=== PATIENT | male | born 1945 | race Caucasian/White ===

== ENCOUNTER 2020-05-22 02:48 | Outpatient (CLI) | payer MEDICARE, BC, SELFPAY ==
[2020-05-24 02:33] LABS: COVID-19 RT-PCR Result NEGATIVE (Negative)
== END 2020-05-22 03:08 ==
PROVIDERS: PCP Family Medicine; Visit Provider Family Medicine
DX: Z11.59 Encounter for screening for other viral diseases (principal); Z01.818 Encounter for other preprocedural examination
CPT/HCPCS: U0003

== ENCOUNTER 2020-05-25 05:01 | Outpatient (CLI) | payer MEDICARE, BC, SELFPAY ==
[2020-05-25] MEDS: Albuterol HFA 18 GM 200 PUFF INH IH (14:37)
[2020-05-25] MEDS: Inhaler, Assist Device 1 EACH MC (14:37)
--- NOTE | 2020-05-25 15:06 | W.PFT ---
Date of service: 05/25/20 Time of Service: 01:10 Pulmonary Function Test Result Interpretation Spirometry: Shows no evidence of obstructive airways disease, no bronchodilator response Lung Volumes: No evidence of restriction Diffusion Capacity: Mildly reduced even when corrected to alveolar volume Airway Pressure: Normal Impression Isolated mild diffusion defect, this can be seen in early, developing interstitial lung disease as well as in pulmonary hypertension. Therefore if either of those entities are considered clinically, further work-up may be necessary. Clinical Correlation therefore is recommended.
== END 2020-05-25 05:21 ==
PROVIDERS: PCP Family Medicine; Visit Provider Family Medicine
DX: R06.02 Shortness of breath (principal)
CPT/HCPCS: 94060; 94726; 94729